=== PATIENT | male | born 1945 | race Hispanic/Latino ===

== ENCOUNTER 2021-07-25 12:56 | Outpatient (CLI) | payer MEDICARE, OTHER ==
--- NOTE | 2021-07-25 16:33 | Vascular Lab Report ---
DUPLEX DOPPLER LOWER EXTREMITY VEINS, BILATERAL INDICATION / CLINICAL INFORMATION: PAIN IN LEGS, DIZZINESS M79.661 M79.662. TECHNIQUE: Duplex doppler imaging was performed through the veins of both lower extremities using eliana ous compression and other maneuvers. COMPARISON: None available. FINDINGS: RIGHT COMMON FEMORAL VEIN: Negative. RIGHT FEMORAL VEIN: Negative. RIGHT POPLITEAL VEIN: Negative. RIGHT CALF VEINS: Negative. LEFT COMMON FEMORAL VEIN: Negative. LEFT FEMORAL VEIN: Negative. LEFT POPLITEAL VEIN: Negative. LEFT CALF VEINS: Negative. ADDITIONAL FINDINGS: None. IMPRESSION: 1. No sonographic evidence for DVT in either lower extremity. Signer Name: Jesus Friend MD Signed: 07/25/2021 4:28 PM Workstation Name: [employer]
--- NOTE | 2021-07-25 17:32 | Vascular Lab Report ---
DUPLEX DOPPLER ULTRASOUND CAROTID, BILATERAL INDICATION / CLINICAL INFORMATION: PAIN IN LEGS, DIZZINESS M79.661 M79.662. COMPARISON: None available. FINDINGS: RIGHT CAROTID: Minimal atherosclerotic plaque. - PLAQUE ESTIMATE (%): < 50% - CCA velocity: 93 cm/sec. - ICA peak systolic velocity: 73 cm/sec. - ICA/CCA PSV Ratio: Less than 2. Right Vertebral Artery: Antegrade flow. LEFT CAROTID: Mild atherosclerotic plaque. - PLAQUE ESTIMATE (%): < 50% - CCA velocity: 83 cm/sec. - ICA peak systolic velocity: 93 cm/sec. - ICA/CCA PSV Ratio: Less than 2. Left Vertebral Artery: Antegrade flow. IMPRESSION: 1. Right Internal Carotid Artery: Less than 50% diameter stenosis. 2. Left Internal Carotid Artery: Less than 50% diameter stenosis. Velocity criteria are extrapolated from diameter data as defined by the Society of Radiologists in Ul trasound Consensus Conference, Radiology 2003; 229;340-346. NO STENOSIS (NORMAL) - Plaque = none; ICA PSV < 125 cm/sec; ICA/CCA PSV Ratio < 2.0 <50% STENOSIS - Plaque < 50%; ICA PSV < 125 cm/sec; ICA/CCA PSV Ratio < 2.0 50-69% STENOSIS - Plaque > 50%; ICA PSV = 125-230 cm/sec; ICA/CCA PSV Ratio = 2.0-4.0 >70% BUT <100% STENOSIS - Plaque > 50%; ICA PSV > 230 cm/sec; ICA/CCA PSV Ratio > 4.0 NEAR OCCLUSION - Plaque = visible lumen; ICA PSV = high/low/none; ICA/CCA PSV Ratio = variable TOTAL OCCLUSION - Plaque = no lumen; ICA PSV = none; ICA/CCA PSV Ratio = N/A Scribed by: Silvana Lao RDMS, RVT, RMSKS Scribed: 07/25/2021 3:34 PM I have reviewed the images, agree with this report, and edited this report as needed. Signer Name: Lev Cleveland MD Signed: 07/25/2021 5:28 PM Workstation Name: [id number]
--- NOTE | 2021-07-25 17:38 | Magnetic Resonance Report ---
MRI LUMBAR SPINE 07/25/2021 INDICATION / CLINICAL INFORMATION: PAIN IN LEGS, SPONDYLOSIS. COMPARISON: None available. FINDINGS: GENERAL OBSERVATIONS: Unenhanced MR images of the lumbar spine were obtained. There is left convex scoliosis centered at the L2-3 level. There is no evidence of acute abnormality. [id number] ANALYSIS: L5-S1: There is slight anterolisthesis associated with moderate facet degenerative changes and mild d iffuse disc bulging. L4-5: Disc space narrowing and moderate diffuse disc bulging. Moderate bilateral facet degenerative c hanges. There is mild central canal narrowing present, with no evidence of lateralization. L3-4: Mild diffuse disc bulging. There is small left lateral disc protrusion, with moderate narrowing of left neural foramen. Soft tissue planes around the exiting nerve root are preserved, however. L2-3: Disc space narrowing and moderate diffuse disc bulging. Moderate right-sided foraminal narrowin g is present with no definite nerve root compression. L1-2: Mild symmetric diffuse disc bulging. BONE MARROW: No significant abnormality SPINAL CORD/CAUDA EQUINA: Unremarkable PARASPINAL SOFT TISSUES: No significant abnormality. IMPRESSION: Scoliosis associated with mild degenerative disc and facet changes. No evidence of stenosis and no ev idence of direct nerve root compression. Signer Name: Manjinder Cardona MD Signed: 07/25/2021 5:34 PM Workstation Name: [id number]
== END 2021-07-25 12:57 | disposition home or self-care (01) ==
LOC: VAS 12:56
PROVIDERS: ATTEND Family Medicine
DX: M51.36 Other intervertebral disc degeneration, lumbar region (principal); M43.17 Spondylolisthesis, lumbosacral region; I65.23 Occlusion and stenosis of bilateral carotid arteries; M79.661 Pain in right lower leg; M79.662 Pain in left lower leg
CPT/HCPCS: 72148; 93880; 93970